=== PATIENT | male | born 1945 | race Caucasian/White ===

== ENCOUNTER 2017-05-16 08:56 | Day surgery (SDC) | payer OTHER, BC ==
[2017-05-15 15:16] VITALS: BMI 26.2
[2017-05-16] MEDS ORDERED: PROPOFOL 20 ML ONE ×2 (09:37)
[2017-05-16 10:34] VITALS: TEMP 97.9
[2017-05-16 11:25] VITALS: BP 129/73; PULSE 52
--- NOTE | 2017-05-17 11:37 | PATH ---
Surgical Pathology Report Patient Name: FADI CANSECO [facility]. Rec. #: [id number] /Age/Gender: 1945 (Age: 71) / M Account: [id number] Location: ASU-ENDOSCOPY Taken: 05/16/2017 Received: 05/16/2017 Reported: 05/17/2017 Physicians: Belinda Harris M.D. Specimen(s) Received BX RECTAL POLYP Clinical History History of adenoma Polyp, diverticulosis Final Diagnosis COLON, RECTUM, BIOPSY: HYPERPLASTIC POLYP. Electronically Signed Shan Phelan M.D. Gross Description Received in formalin, labeled "biopsy rectal polyp" are 2 ya, irregular portions of soft tissue measuring 0.2 and 0.3 cm. in greatest dimension. The specimens are submitted in toto in one cassette. 05/16/201705/16/2017
== END 2017-05-16 11:24 | disposition home or self-care (01) ==
LOC: JASU-ENDO 08:56
PROVIDERS: ATTEND Internal Medicine Gastroenterology
PROC: 0DBP8ZX Excision of Rectum, Via Natural or Artificial Opening Endoscopic, Diagnostic (ICD-10-PCS; principal; 2017-05-16 10:00)
DX: Z86.010 Personal history of colon polyps (principal); K62.1 Rectal polyp; K57.30 Diverticulosis of large intestine without perforation or abscess without bleeding; K64.8 Other hemorrhoids
CPT/HCPCS: 88305-TC

== ENCOUNTER 2017-07-05 13:51 | Emergency (ER) | payer OTHER, BC ==
[2017-07-05 13:59] VITALS: BP 153/85; PULSE 80; TEMP 98.2; BMI 27.1
--- NOTE | 2017-07-05 14:34 | PDOC ---
History of Present Illness - General Chief Complaint: Edema Stated Complaint: RX REFILL, SWOLLEN RT ARM Time Seen by Provider: 07/05/17 14:04 Past History - Past Medical History Allergies/Adverse Reactions: Allergies Allergy/AdvReac Type Severity Reaction Status Date / Time No Known Allergies Allergy Verified 07/05/17 13:53 Home Medications: Ambulatory Orders Atorvastatin Ca [Lipitor] 10 mg PO HS 04/14/14 Losartan/Hydrochlorothiazide [Hyzaar 100-12.5 Tablet] 1 each PO DAILY 04/14/14 Cholecalciferol (Vitamin D3) [Vitamin D3] 1 tab PO DAILY 05/06/15 Ranitidine HCl 150 mg PO BID 05/15/17 Aspirin [[place] Aspirin] 81 mg PO DAILY 05/16/17 Metoprolol Succinate [Toprol Xl] 50 mg PO DAILY 05/16/17 Ciprofloxacin [Cipro (Restricted To Id)] 500 mg PO Q12H 07/05/17 Mupirocin 45 gm TP BID #1 tube 07/05/17 Naproxen Sodium 275 mg PO Q8H #21 tablet 07/05/17 Anemia: No Asthma: No Cancer: No Cardiac Disorders: Yes (PAROXYSMAL ATRIAL FIBRILLATION VS SVT REMEDIED W/ ABLATION) CVA: No COPD: No CHF: No Dementia: No Diabetes: No GI Disorders: Yes (COLON POYPS,SERRATED ADENOMAS) Disorders: Yes (BPH) HTN: Yes Hypercholesterolemia: Yes Liver Disease: No Suicide Attempt (Hx): No Seizures: No Thyroid Disease: No - Surgical History Abdominal Surgery: No Appendectomy: No Cardiac Surgery: Yes (ABLATION AT [facility]) Cholecystectomy: No Lung Surgery: No Neurologic Surgery: No Orthopedic Surgery: No - Immunization History Immunization Up to Date: Yes (flu and pna utd) - Psycho/Social/Smoking Cessation Hx Anxiety: No Suicidal Ideation: No Smoking Status: No Smoking History: Former smoker Have you smoked in the past 12 months: No Number of Cigarettes Smoked Daily: 0 If you are a former smoker, when did you quit?: 1969 Information on smoking cessation initiated: No Hx Alcohol Use: No Drug/Substance Use Hx: No Substance Use Type: None Hx Substance Use Treatment: No *Physical Exam - Vital Signs Last Vital Signs Temp Pulse Resp BP Pulse Ox 98.2 F 80 18 153/85 98 07/05/17 13:53 07/05/17 13:53 07/05/17 13:53 07/05/17 13:53 07/05/17 13:53 *DC/Admit/Observation/Transfer Diagnosis at time of Disposition: Abrasion of finger of right hand Qualifiers: Encounter type: initial encounter Qualified Code(s): S60.419A - Abrasion of unspecified finger, initial encounter - Discharge Dispostion Disposition: HOME Condition at time of disposition: Good Admit: No - Referrals Referrals: Fredy Moreno MD [Primary Care Provider] - - Patient Instructions Printed Discharge Instructions: DI for Removal of Foreign Body From Skin Additional Instructions: Your finger is healing. Continue with the warm water soaks four times a day for the next week. You may stop the antibiotics. Use bactroban on the finger twice a day. Take naproxen as needed for pain, one pill every 8 hours as needed. Follow up with Dr. Page's office when you leave the department. Return to the ED if you have, fevers, chills, worsening pain in the finger, worsening swelling, see white or green drainage, or if you have any changes in your symptoms.
[2017-07-05] MEDS ORDERED: IBUPROFEN 400 MG TABLET (FP) PO ONE ×2 (15:14)
== END 2017-07-05 16:05 | disposition home or self-care (01) ==
LOC: JERFT 13:51
DX: S60.311D Abrasion of right thumb, subsequent encounter (principal); L08.9 Local infection of the skin and subcutaneous tissue, unspecified; W27.8XXD Contact with other nonpowered hand tool, subsequent encounter; I48.0 Paroxysmal atrial fibrillation; I10 Essential (primary) hypertension; E78.00 Pure hypercholesterolemia, unspecified; N40.0 Benign prostatic hyperplasia without lower urinary tract symptoms; Z86.010 Personal history of colon polyps
CPT/HCPCS: 73130-TC-RT; 99281-25

== ENCOUNTER 2018-03-01 18:10 | Emergency (ER) | payer OTHER, BC ==
[2018-03-01 18:46] VITALS: BP 127/61; PULSE 57; TEMP 98.3; BMI 26.4
--- NOTE | 2018-03-01 19:15 | PDOC ---
History of Present Illness - General History Source: Patient Exam Limitations: No Limitations - History of Present Illness Initial Comments: 03/01/18 19:35 The patient is a 72 year old male who presents to the emergency department s/p fall for evaluation of right wrist pain and right side of face abrasion. The patient reports falling off a ladder at a height of 6 feet around 530pm. The patient reports landing on his right hand first and then the right side of his face. At presentation, there is no active bleeding. The patient denies loss of consciousness. The patient denies chest pain, shortness of breath, headache,numbness, tingling , and dizziness. Denies fevers, chills, nausea, vomiting, diarrhea, constipation or changes in urination. Denies any other kinds of injury. PAST MEDICAL HISTORY: afib, SVT with ablation, colon polyps, serrated adenomas , BPH, HLD, HTN PAST SURGICAL HISTORY: Ablation at [facility] FAMILY HISTORY: no pertinent history SOCIAL HISTORY: Former smoker (1970), alcohol consumption (a glass of wine daily) MEDICATIONS: reviewed ALLERGIES: As per nursing notes ROS General: No fevers or chills, no weakness, no weight loss HEENT: (+)right side of face abrasion. No change in vision. No sore throat,. No ear pain Cardiovascular: No chest pain or shortness of breath Respiratory: No cough, or wheezing. Gastrointestinal: no nausea, vomiting, diarrhea or constipation, No rectal bleeding Genitourinary: No dysuria, hematuria, or frequency Musculoskeletal: No joint or muscle pain or swelling Extremities: (+)Right wrist pain. Neurologic: No headache, vertigo, dizziness or loss of consciousness Psychiatric: nor depression Skin: No rashes or easy bruising Endocrine: no increased thirst or abnormal weight change Allergic: no skin or latex allergy All other systems reviewed and normal PE GENERAL: The patient is awake, alert, and fully oriented, in no acute distress. HEAD: (+)Superficial abrasion to right cheek area, no bleeding, no tenderness to bony structures of face, no other evidence of trauma to head or neck. EYES: Pupils equal, round and reactive to light, extraocular movements intact, sclera anicteric, conjunctiva clear. EXTREMITIES: Right arm: (+) deformity to right wrist. Decreased ROM secondary to deformity and pain. Pulses are normal. Neurovascular distal intact, otherwise normal range of motion, no edema. NEUROLOGICAL: Normal speech, normal gait. PSYCH: Normal mood, normal affect. SKIN: Warm, Dry, normal turgor, no rashes or lesions noted. <Yamel Martinez - Last Filed: 03/01/18 20:16> - General History Source: Patient Exam Limitations: No Limitations - History of Present Illness Initial Comments: A portion of this note was documented by scribe services under my direction. I have reviewed the details of the note, within reason, and agree with the documentation. The case summary and management plan written by me. 03/01/18 19:35 Medical decision making: This is a 72-year-old male who was up on a ladder approximately 6 foot in the air when the ladder tilted over and rolled to the ground. Patient put out his arm to break his fall and comes in with an obvious deformity to the wrist. Patient otherwise scrape his face on the ground.. Agent denies loss of consciousness patient denies any headache or neurological complaints patient denies any neck pain or weakness of his extremities. Obtain a head CT and cervical spine CT based on mechanism We'll obtain x-ray of wrist based on deformity Well medicated with some pain medication, reassess and follow up results of radiology test 03/01/18 20:38 Wrist x-ray comminuted fracture distal radius involving the joint space. Head CT no acute pathology Cervical spine CT no fracture dislocation or subluxation no acute pathology Procedure note patient's placed in preformed wrist splint neurovascular post splint application intact Assessment and plan: This is a 72-year-old male who fell off a ladder. Patient had a head CT and cervical spine CT that was negative for any acute pathology. Patient's wrist x- ray did show a comminuted distal radius fracture. Discussed the injury and x- ray with Dr. sawyer who reviewed the x-ray and recommended the patient be put in a splint and to follow-up with on Sunday. Patient given the contact information for Dr. Danielson will call Dr. Rutledge and follow-up with him. Percocet prescription sent to patient's pharmacy. Patient was also told that it will make him constipated so if he takes a Percocet he also needs to take a stool softener or laxative to make sure that he stays regular <Vinod Preston I - Last Filed: 03/01/18 20:45> - General Chief Complaint: Injury Stated Complaint: FELL OFF A LADDER Time Seen by Provider: 03/01/18 19:13 Past History <Yamel Martinez - Last Filed: 03/01/18 20:16> - Past Medical History Anemia: No Asthma: No Cancer: No Cardiac Disorders: Yes (PAROXYSMAL ATRIAL FIBRILLATION VS SVT REMEDIED W/ ABLATION) CVA: No COPD: No CHF: No Dementia: No Diabetes: No GI Disorders: Yes (COLON POYPS,SERRATED ADENOMAS) Disorders: Yes (BPH) HTN: Yes Hypercholesterolemia: Yes Liver Disease: No Seizures: No Thyroid Disease: No - Surgical History Abdominal Surgery: No Appendectomy: No Cardiac Surgery: Yes (ABLATION AT [facility]) Cholecystectomy: No Lung Surgery: No Neurologic Surgery: No Orthopedic Surgery: No - Immunization History Immunization Up to Date: Yes (flu and pna utd) - Suicide/Smoking/Psychosocial Hx Smoking Status: No Smoking History: Former smoker Have you smoked in the past 12 months: No Number of Cigarettes Smoked Daily: 0 If you are a former smoker, when did you quit?: 1969 Information on smoking cessation initiated: No Hx Alcohol Use: Yes (1 GLASS OF WINE) Drug/Substance Use Hx: No Substance Use Type: None Hx Substance Use Treatment: No <Vinod Preston I - Last Filed: 03/01/18 20:45> - Past Medical History Allergies/Adverse Reactions: Allergies Allergy/AdvReac Type Severity Reaction Status Date / Time No Known Allergies Allergy Verified 03/01/18 18:26 Home Medications: Ambulatory Orders Cholecalciferol (Vitamin D3) [Vitamin D3] 1 tab PO DAILY 05/06/15 Ranitidine HCl 150 mg PO BID 05/15/17 Aspirin [[place] Aspirin] 81 mg PO DAILY 05/16/17 Atorvastatin Ca [Lipitor] 20 mg PO HS 03/01/18 Losartan Potassium [Cozaar -] 50 mg PO DAILY 03/01/18 Metoprolol Succinate [Toprol Xl] 25 mg PO DAILY 03/01/18 *Physical Exam - Vital Signs Last Vital Signs Temp Pulse Resp BP Pulse Ox 98.3 F 57 L 18 127/61 98 03/01/18 18:25 03/01/18 18:25 03/01/18 18:25 03/01/18 18:25 03/01/18 18:25 <Yamel Martinez - Last Filed: 03/01/18 20:16> - Vital Signs Last Vital Signs Temp Pulse Resp BP Pulse Ox 98.3 F 57 L 18 127/61 98 03/01/18 18:25 03/01/18 18:25 03/01/18 18:25 03/01/18 18:25 03/01/18 18:25 <Vinod Preston I - Last Filed: 03/01/18 20:45> ED Treatment Course - Medications Given in the ED: ED Medications Discontinued Medications Generic Name Dose Route Start Last Admin Trade Name Freq PRN Reason Stop Dose Admin Oxycodone/Acetaminophen 1 combo 03/01/18 19:16 03/01/18 19:21 Percocet 5/325 - PO 03/01/18 19:17 1 combo ONCE ONE Administration <Yamel Martinez - Last Filed: 03/01/18 20:16> Medical Decision Making - Medical Decision Making Consulted with Dr. Sawyer at 20:15. <Yamel Martinez - Last Filed: 03/01/18 20:16> *DC/Admit/Observation/Transfer - Attestations Scribe Attestion: Documentation prepared by Yamel Martinez, acting as medical service representative for Vinod Preston MD. <Yamel Martinez - Last Filed: 03/01/18 20:16> - Discharge Dispostion Admit: No <Vinod Preston I - Last Filed: 03/01/18 20:45> Diagnosis at time of Disposition: Right wrist fracture Qualifiers: Encounter type: initial encounter Fracture type: closed Qualified Code(s): S62.101A - Fracture of unspecified carpal bone, right wrist, initial encounter for closed fracture Facial abrasion Qualifiers: Encounter type: initial encounter Qualified Code(s): S00.81XA - Abrasion of other part of head, initial encounter - Discharge Dispostion Disposition: HOME Condition at time of disposition: Good - Referrals Referrals: Fredy Moreno MD [Primary Care Provider] - - Patient Instructions Additional Instructions: U can adjust the wrap on the splint if it is too loose or too tight. Wear the splint at all times otherwise keep it dry. For the pain during the day take Tylenol or Motrin or Aleve. At nighttime or if he needs something stronger to during the day U can take 1 Percocet as often as every 4-6 hours if you do take the Percocet be aware will make you constipated so make sure you get a [id number] laxative or stool softener and take them as needed. Call Sunday at [phone] for an appointment on Sunday Dr. Albarado is the hand and wrist specialist. Return to the emergency department immediately with ANY new, persistent or worsening symptoms. Continue any medications as previously prescribed by your physician. You should follow up with your primary doctor as soon as possible regarding today's emergency department visit. . Please make sure your doctor reviews the results of your emergency evaluation. Thank you for coming to the Emergency Department today for your care. It was a pleasure to see you today. Please note that your evaluation is INCOMPLETE until you follow-up with your doctor. - Post Discharge Activity
[2018-03-01] MEDS ORDERED: DIPHTH,PERTUSS(ACELL),TET 0.5 ML DISP.SYRIN IM ONE (19:48)
== END 2018-03-01 20:55 | disposition home or self-care (01) ==
LOC: FER 18:10
PROC: 2W3CX1Z Immobilization of Right Lower Arm using Splint (ICD-10-PCS; principal; 2018-03-01)
DX: S62.101A Fracture of unspecified carpal bone, right wrist, initial encounter for closed fracture (principal); S00.81XA Abrasion of other part of head, initial encounter; W11.XXXA Fall on and from ladder, initial encounter; Y93.89 Activity, other specified; Y92.9 Unspecified place or not applicable
CPT/HCPCS: 29125; 70450-TC; 72125-TC; 73110-TC-RT-FY; 90715; 99282-25

== ENCOUNTER 2018-03-06 07:08 | Day surgery (SDC) | payer OTHER, BC ==
[2018-03-05 13:19] VITALS: BMI 26.4
[2018-03-06] MEDS ORDERED: BUPIVACAINE HCL/PF (5 MG/ML) 30 ML VIAL IJ ONE (08:28)
[2018-03-06] MEDS ORDERED: DEXAMETHASONE SOD PHOSPHATE/PF 10 MG/ML SDV ONE (08:28)
[2018-03-06] MEDS ORDERED: MIDAZOLAM HCL 2 MG/2 ML SINGLE DOSE VIAL ONE (08:28)
[2018-03-06] MEDS ORDERED: BUPIVACAINE HCL 0.25% 125 MG/50 ML VIAL ONE (08:45)
[2018-03-06] MEDS ORDERED: PROPOFOL 20 ML ONE ×2 (09:06)
[2018-03-06] MEDS ORDERED: ePHEDrine SULFATE 50 MG/1 ML AMPULE ONE (09:52)
[2018-03-06] MEDS ORDERED: PROMETHAZINE HCL 25 MG/1 ML VIAL IVPB PRN (10:03)
[2018-03-06] MEDS ORDERED: oxyCODONE HCL 5 MG TABLET PO PRN ×2 (10:03)
[2018-03-06] MEDS ORDERED: ONDANSETRON 4 MG/2 ML VIAL IVPUSH PRN (10:03)
[2018-03-06] MEDS ORDERED: LACTATED RINGERS SOLUTION 1,000 ML IV SCH (10:15)
--- NOTE | 2018-03-06 12:08 | OP ---
DATE OF OPERATION: 03/06/2018 PREOPERATIVE DIAGNOSIS: Right comminuted intraarticular displaced distal radius fracture. POSTOPERATIVE DIAGNOSIS: Right comminuted intraarticular displaced distal radius fracture. OPERATIVE PROCEDURE: 1. Open reduction internal fixation of right comminuted intraarticular displaced distal radius fracture with internal fixation of 3 or more fragments. 2. Right brachioradialis tenotomy. SURGEON: Jalen Moulton MD ULTRASOUND TECH: ROBYN Clemons ANESTHESIA: Regional. COMPLICATIONS: None. ESTIMATED BLOOD LOSS: Minimal. INDICATIONS: The patient is a 72-year-old male with the above findings, indicated for operative treatment. The risks, benefits, and alternatives were discussed with the patient at length, and proper informed consent was obtained. DESCRIPTION OF PROCEDURE: After proper identification of the patient and the correct operative site, the patient was brought to the operating room and placed supine on the operating room table with prominences well padded. Sedation and regional anesthesia were given. Intravenous antibiotics were given. Right upper extremity was prepped and draped in the usual sterile fashion. Well-padded tourniquet was placed with a sterile prep. Esmarch bandage used to exsanguinate the right upper extremity. Tourniquet inflated to 250 mmHg. A longitudinal incision was made over the flexor carpi radialis tendon. Incision was taken sharply through the skin with blunt and sharp dissection through subcutaneous tissues. Flexor carpi radialis tendon along with the contents of the carpal canal were bluntly and gently retracted in an ulnarward direction for the remainder of the procedure. Pronator quadratus was divided longitudinally. The fracture was found to highly comminuted with multiple intraarticular fragments. These were reduced into satisfactory position and held with an Acumed Acu-Loc plate with distal locking screws and proximal nonlocking screws. Large separate radial styloid fragment was not possible to be reduced due to the pulled-up brachioradialis. Therefore, a brachioradialis tenotomy was performed in a subperiosteal fashion which allowed reduction of this fragment. Wound was irrigated with saline and repaired in layers using 4-0 Vicryl and 4-0 Monocryl. Steri-Strips, sterile dressings, and a splint were placed. The patient was reversed from anesthesia and brought to the recovery room in stable condition. He tolerated the procedure well. Rodney Middleton, the therapeutic assistant, was integral throughout the procedure. The procedure could not have been performed without a skilled operative therapeutic assistant. Of note, prior to closing, a radiograph was taken showing proper reduction of fracture and placement and sizing of all hardware. Also the scapholunate interval and distal radioulnar joints were stressed and found to be stable. JALEN MOULTON M.D. [id number]
[2018-03-06 12:37] VITALS: BP 130/76; PULSE 70; TEMP 97.8
== END 2018-03-06 12:37 | disposition home or self-care (01) ==
LOC: MERGE 07:08 → FASU 07:08 → EDBD 15:30
PROVIDERS: ATTEND Orthopaedic Surgery Hand Surgery
PROC: 0LN50ZZ Release Right Lower Arm and Wrist Tendon, Open Approach (ICD-10-PCS; 2018-03-06)
PROC: 0PSH04Z Reposition Right Radius with Internal Fixation Device, Open Approach (ICD-10-PCS; principal; 2018-03-06 09:35)
DX: S52.531A Colles' fracture of right radius, initial encounter for closed fracture (principal); S56.811A Strain of other muscles, fascia and tendons at forearm level, right arm, initial encounter; X58.XXXA Exposure to other specified factors, initial encounter; Y93.9 Activity, unspecified; Y92.9 Unspecified place or not applicable
CPT/HCPCS: 25290; 25609; C1713; 73110-TC-RT-FY; 94760

== ENCOUNTER 2020-08-02 04:35 | Day surgery (SDC) | payer BC, OTHER ==
--- OUTSIDE RECORDS SUMMARY | 2020-07-22 10:34 | XMS ---
:[address] [facility] Support Name Relationship Address Phone RE Unavailable Unavailable Unavailable GINNY CANSECO [address] [place] [address] Re-disclosure Warning The records that you are about to access may contain information from federally- assisted alcohol or drug abuse programs. If such information is present, then the following federally mandated warning applies: This information has been disclosed to you from records protected by federal confidentiality rules (42 CFR part 2). The federal rules prohibit you from making any further disclosure of this information unless further disclosure is expressly permitted by the written consent of the person to whom it pertains or as otherwise permitted by 42 CFR part 2. A general authorization for the release of medical or other information is NOT sufficient for this purpose. The Federal rules restrict any use of the information to criminally investigate or prosecute any alcohol or drug abuse patient.The records that you are about to access may contain highly sensitive health information, the redisclosure of which is protected by Article 27-F of the [facility] Public Health law. If you continue you may haveaccess to information: Regarding HIV / AIDS; Provided by facilities licensed or operated by the [facility] Office of Mental Health; or Provided by the [facility] Office for People With Developmental Disabilities. If such information is present, then the following [facility] mandated warning applies: This information has been disclosed to you from confidential records which are protected by state law. State law prohibits you from making any further disclosure of this information without the specific written consent of the person to whom it pertains, or as otherwise permitted by law. Any unauthorized further disclosure in violation of state law may result in a fine or penitentiary sentence or both. A general authorization for the release of medical or other information is NOT sufficient authorization for further disclosure. Insurance Providers Payer name Policy type Policy ID Covered Covered republican's Policy P klaudia / Coverage republican ID relationship to Yun Inf [facility]mation [facility] [id number] SP [id number] MEDICARE [id number] SP [id number]
[2020-07-28 14:07] VITALS: BMI 28.5
--- OUTSIDE RECORDS SUMMARY | 2020-08-02 04:38 | XMS ---
:1945 [facility] Support Name Relationship Address Phone RE, RETIRED Unavailable Unavailable Unavailable RE Unavailable Unavailable Unavailable GINNY CANSECO [address] [place] [address] Re-disclosure Warning The records that you are [...] is protected by Article 27-F of the [facility] Public Health law. If you continue you may haveaccess to information: Regarding HIV / AIDS; Provided by facilities licensed or operated by the [facility] Office of Mental Health; or Provided by the [facility] Office for People With Developmental Disabilities. If such information is present, then the following [facility] mandated warning applies: This information has been [...] law may result in a fine or half-way sentence or both. A general authorization for the release of medical or other information is NOT sufficient authorization for further disclosure. Insurance Providers Payer name Policy type Policy ID Covered Covered green party's Policy P klaudia / Coverage green party ID relationship to Yun Inf ormation type yun BC INDEMNITY [id number] SP [id number] [employer] MEBTHFXP SP [id number] MEDICARE BC PPO [id number] SP [id number] MEDICARE [id number] SP [id number] Results ID Date Data Source [id number] 07/29/2020 10:35:00 AM EDT [facility] Name Value Range Interpretation Description Data Sup porting Code Source(s) Document(s ) SARS [facility] coronavirus 2 RNA This lab was ordered by [facility] and reported by [facility]. Procedure
[2020-08-02 09:22] VITALS: TEMP 97.8
[2020-08-02 10:08] VITALS: BP 122/48; PULSE 68
--- NOTE | 2020-08-03 13:27 | PATH ---
Surgical Pathology Report Patient Name: FADI CANSECO [facility]. Rec. #: [id number] /Age/Gender: 1945 (Age: 74) / M Account: [id number] Location: U-ENDOSCOPY Taken: 08/02/2020 Received: 08/02/2020 Reported: 08/03/2020 Physicians: Belinda Harris M.D. Specimen(s) Received A: RECTAL POLYP B: CECAL POLYP C: TRANSVERSE COLON POLYP D: DESCENDING COLON POLYP Clinical History Adenoma surveillance Postoperative diagnosis: Rectal polyps Final Diagnosis A. RECTAL POLYP, BIOPSY: SESSILE SERRATED POLYP. B. CECUM, POLYP, BIOPSY: TUBULAR ADENOMA. C. TRANSVERSE COLON, POLYP, BIOPSY: TUBULAR ADENOMA. D. DESCENDING COLON, POLYP, BIOPSY: HYPERPLASTIC POLYP. Electronically Signed Kylie Moses M.D. Gross Description A. Received in formalin, labeled "rectal polyp" is a ya, irregular portion of soft tissue measuring 0.3 cm. in greatest dimension. The specimen is submitted in toto in one cassette. B. Received in formalin, labeled "cecal polyp" are 2 ya, irregular portions of soft tissue measuring 0.2 and 0.3 cm. in greatest dimension. The specimens are submitted in toto in one cassette. C. Received in formalin, labeled "transverse colon polyp" is a ya, irregular portion of soft tissue measuring 0.2 cm. in greatest dimension. The specimen is submitted in toto in one cassette. D. Received in formalin, labeled "descending colon polyp" are 2 ya, irregular portions of soft tissue measuring 0.1 cm. and 0.2 cm. in greatest dimension. The specimens are submitted in toto in one cassette. DL08/02/2020 saudi/08/02/2020
== END 2020-08-02 10:08 | disposition home or self-care (01) ==
LOC: JASU-ENDO 04:35
PROVIDERS: ATTEND Internal Medicine Gastroenterology
PROC: 0DBL8ZX Excision of Transverse Colon, Via Natural or Artificial Opening Endoscopic, Diagnostic (ICD-10-PCS; 2020-08-02)
PROC: 0DBM8ZX Excision of Descending Colon, Via Natural or Artificial Opening Endoscopic, Diagnostic (ICD-10-PCS; 2020-08-02)
PROC: 0DBP8ZX Excision of Rectum, Via Natural or Artificial Opening Endoscopic, Diagnostic (ICD-10-PCS; 2020-08-02)
PROC: 0DBH8ZX Excision of Cecum, Via Natural or Artificial Opening Endoscopic, Diagnostic (ICD-10-PCS; principal; 2020-08-02 09:00)
DX: Z12.11 Encounter for screening for malignant neoplasm of colon (principal); Z86.010 Personal history of colon polyps; K64.8 Other hemorrhoids; D12.0 Benign neoplasm of cecum; D12.4 Benign neoplasm of descending colon; D12.3 Benign neoplasm of transverse colon; K62.1 Rectal polyp
CPT/HCPCS: 88305-TC